=== PATIENT | female | born 1970 | race Caucasian/White ===

== ENCOUNTER → 2017-07-08 | Outpatient (CLI) | payer OTHER ==
--- NOTE | 2017-07-08 13:57 | REP ---
ULTRASOUND RIGHT SUPRACLAVICULAR SOFT TISSUES: Real-time sonographic evaluation of the right supraclavicular soft tissues performed for a reported palpable abnormality for the past 6 months. A normal-sized lymph node is see in the right supraclavicular region measuring 10 x 5 9 mm. No other cystic or solid nodule is seen. Ultrasound is also performed of the left side which shows a nonenlarged lymph node 7 x 5 x 6 mm. IMPRESSION: Nonenlarged lymph node in the right supraclavicular region where there is reportedly a palpable abnormality. Signed by Joselo Edwards MD 07/08/2017 04:34 P
--- NOTE | 2017-07-08 14:03 | REP ---
THYROID ULTRASOUND: Real-time sonographic evaluation of the thyroid is performed. The right lobe measures 3.8 x 2.0 x 1.7 cm and the left lobe 4.4 x 1.7 x 1.5 cm. Multiple subcentimeter cysts and nodules are seen bilaterally. The largest are measured. There is a complex cyst in the right upper pole, 3 x 2 x 4 mm. A solid nodule is seen in the right lower pole, 9 x 7 x 8 mm. Complex cyst or solid nodule in the left upper pole measures 5 x 4 x 4 mm. IMPRESSION: Subcentimeter cysts and nodules as discussed above bilaterally. Recommend followup ultrasound in 6 months. Signed by Joselo Edwards MD 07/08/2017 04:34 P
== END ==
LOC: M RAD 13:07
PROVIDERS: ATTEND Family Medicine
DX: R22.1 Localized swelling, mass and lump, neck (principal)

== ENCOUNTER → 2017-10-25 | Outpatient (REF) | payer OTHER | LOC: M LAB REF 16:52 | DX: E04.2 Nontoxic multinodular goiter (principal) ==

== ENCOUNTER → 2017-11-01 | Outpatient (REF) | payer OTHER | LOC: M LAB REF 14:50 | DX: E04.2 Nontoxic multinodular goiter (principal) ==

== ENCOUNTER 2018-07-17 17:51 | Emergency (ER) | payer OTHER ==
[2018-07-17] MEDS ORDERED: METHOCARBAMOL 500 MG TAB PO (19:30)
[2018-07-17] MEDS ORDERED: IBUPROFEN 600 MG TAB PO (19:30)
== END 2018-07-17 19:36 | disposition home or self-care (01) ==
LOC: M ED 17:51
DX: S43.402A Unspecified sprain of left shoulder joint, initial encounter (principal); Y93.89 Activity, other specified; Y92.89 Other specified places as the place of occurrence of the external cause
CPT/HCPCS: 99284